=== PATIENT | male | born 1985 | race Caucasian/White ===

== ENCOUNTER 2020-12-24 19:04 | Emergency (ER) | payer SELFPAY ==
[~2020-12-24] VITALS: Ht 177.8 cm; Wt 92.1 kg
[~2020-12-24 19:04] MED LIST changes: -ALBU90OI INH
[2020-12-24] MEDS ORDERED: ALBU90OI INH (23:25)
== END 2020-12-24 23:59 | disposition home or self-care (01) ==
LOC: ER 19:04
DX: U07.1 COVID-19 (principal); I10 Essential (primary) hypertension; Z79.899 Other long term (current) drug therapy
CPT/HCPCS: 71260; 93005; 93010; 99285-25; Q9967

== ENCOUNTER → 2020-12-24 | Outpatient (CLI) | payer SELFPAY ==
[~2020-12-24] MED LIST: ALBU90OI INH; Flomax0.4 MG PO; KETO10 PO; LISI20 PO; Percocet 5-3251 EACH PO; Prinivil10 MG PO; TAMS.4ER PO; TRAZ100 PO; Zofran Odt8 MG SL
[2020-12-24 17:46] LABS: BASOPHILS ABSOLUTE AUTO 0.01 K/mm3 (0.00-0.23); BASOPHILS PERCENT AUTO 0 % (0-2); EOSINOPHILS PERCENT AUTO 0 % (0-6); Hematocrit 47.5 % (37.0-53.0); Hemoglobin 16.2 g/dL (13.5-17.5); IMMATURE GRAN ABSOLUTE AUTO 0.09 K/mm3 (0.00-0.10); IMMATURE GRAN PERCENT AUTO 1 % (0-1); LYMPHOCYTES ABSOLUTE AUTO 0.43 K/mm3 (0.84-5.20); LYMPHOCYTES PERCENT AUTO 5 % (21-46); MONOCYTES ABSOLUTE AUTO 0.44 K/mm3 (0.16-1.47); MONOCYTES PERCENT AUTO 5 % (4-13); Mean Corpuscular HGB 30.6 pg (26.0-34.0); Mean Corpuscular HGB Conc 34.1 g/dL (31.5-36.5); Mean Corpuscular Volume 90 fL (80-100); Mean Platelet Volume 9.9 fL (9.1-12.4); NEUTROPHILS ABSOLUTE AUTO 7.54 K/mm3 (1.96-9.15); NEUTROPHILS PERCENT AUTO 89 % (41-73); Platelet Count 190 K/mm3 (150-400); RDW Coefficient Variation 12.3 % (11.7-14.2); RDW Standard Deviation 40.6 fL (35.1-46.3); White Blood Cell Count 8.51 K/mm3 (4.00-11.30)
[2020-12-24 17:56] LABS: Alanine Aminotransfer (ALT/SGP 102 U/L (12-78); Albumin, Blood 3.2 g/dL (3.4-5.0); Albumin/Globulin Ratio 0.8 (0.8-1.8); Alk Phos 71 U/L (40-126); Anion Gap 9 mmol/L (6-16); Aspartate Aminotrans (AST/SGOT 30 U/L (12-37); Bilirubin, Total 0.8 mg/dL (0.1-1.0); Blood Urea Nitrogen 16 mg/dL (8-24); Bun/Creatinine Ratio 13.6 (12.0-20.0); CO2, Blood 28 mmol/L (21-32); Calcium, Blood 8.5 mg/dL (8.5-10.1); Chloride, Blood 104 mmol/L (98-108); Creatinine, Blood 1.18 mg/dL (0.60-1.20); Globulin, Blood 4.1 g/dL (2.2-4.0); Glomerular Filtration Rate >60 (60-); Glucose, Blood 124 mg/dL (70-99); Potassium, Blood 4.1 mmol/L (3.5-5.5); Sodium, Blood 141 mmol/L (136-145); Total Protein, Blood 7.3 g/dL (6.4-8.2)
== END | disposition home or self-care (01) ==
LOC: LAB SHORT 17:42 → LAB 17:42
PROVIDERS: Chiropractor
DX: U07.1 COVID-19 (principal)
CPT/HCPCS: 80053; 85025; 85379

== ENCOUNTER 2023-08-07 22:01 | Observation (INO) | payer OTHER ==
[~2023-08-07] VITALS: Ht 177.8 cm; Wt 90.7 kg
[~2023-08-07 22:01] MED LIST changes: +ALBU90OI INH
[2023-08-07] MEDS ORDERED: NIFE10 PO (22:09)
[2023-08-07] MEDS ORDERED: EPLE25 PO (22:10)
[2023-08-07] MEDS ORDERED: LOSA50 PO (22:10)
[2023-08-07] MEDS ORDERED: Prochlorperazine Edisylate 10 mg Vial IV ONE (22:20)
[2023-08-07] MEDS ORDERED: Ketorolac Tromethamine 30mg Vial IV ONE (22:20)
[2023-08-07 22:42] LABS: BASOPHILS ABSOLUTE AUTO 0.05 K/mm3 (0.00-0.23); BASOPHILS PERCENT AUTO 1 % (0-2); EOSINOPHILS ABSOLUTE AUTO 0.23 K/mm3 (0.00-0.68); EOSINOPHILS PERCENT AUTO 3 % (0-6); Hematocrit 54.1 % (37.0-53.0); Hemoglobin 18.5 g/dL (13.5-17.5); IMMATURE GRAN ABSOLUTE AUTO 0.03 K/mm3 (0.00-0.10); IMMATURE GRAN PERCENT AUTO 0 % (0-1); LYMPHOCYTES ABSOLUTE AUTO 1.89 K/mm3 (0.84-5.20); LYMPHOCYTES PERCENT AUTO 23 % (21-46); MONOCYTES ABSOLUTE AUTO 0.55 K/mm3 (0.16-1.47); MONOCYTES PERCENT AUTO 7 % (4-13); Mean Corpuscular HGB 30.6 pg (26.0-34.0); Mean Corpuscular HGB Conc 34.2 g/dL (31.5-36.5); Mean Corpuscular Volume 90 fL (80-100); Mean Platelet Volume 9.7 fL (9.1-12.4); NEUTROPHILS PERCENT AUTO 67 % (41-73); Platelet Count 149 K/mm3 (150-400); RDW Standard Deviation 39.5 fL (35.1-46.3); Red Blood Cell Count 6.04 M/mm3 (4.30-5.90); White Blood Cell Count 8.25 K/mm3 (4.00-11.30)
[2023-08-07] MEDS ORDERED: NS 1,000 ML IV SCH (23:00)
[2023-08-07 23:04] LABS: Albumin, Blood 4.7 g/dL (3.4-5.0); Albumin/Globulin Ratio 1.3 (0.8-1.8); Bilirubin, Total 0.7 mg/dL (0.1-1.0); Bun/Creatinine Ratio 10.7 (12.0-20.0); Calcium, Blood 9.7 mg/dL (8.5-10.1); Creatinine, Blood 1.21 mg/dL (0.60-1.20); Globulin, Blood 3.5 g/dL (2.2-4.0); Potassium, Blood 4.1 mmol/L (3.5-5.5); Total Protein, Blood 8.2 g/dL (6.4-8.2)
[2023-08-08] MEDS ORDERED: Acetaminophen 325 MG TABLET PO PRN (00:15)
[2023-08-08] MEDS ORDERED: Ondansetron HCl 2 MG / ML 2ML Vial IV PRN (00:15)
[2023-08-08] MEDS ORDERED: NS 1,000 ML IV ONE ×2 (00:20→01:55)
[2023-08-08 00:37] VITALS: BP 138/90
[2023-08-08] MEDS ORDERED: LOSA50 PO (00:44)
[2023-08-08] MEDS ORDERED: EPLERENONE50 MG PO (00:44)
[2023-08-08] MEDS ORDERED: NIFE30ER PO (00:44)
[2023-08-08] MEDS ORDERED: Aspirin 81 MG Chew PO SCH (01:00)
[2023-08-08 01:15] LABS: Source, Urine Clean Catch
[2023-08-08 01:16] LABS: Bilirubin, Urine Neg (Neg); Blood, Urine 2+ (Neg); Glucose Qualitative, Urine Neg (Neg); Ketones, Urine Neg (Neg); Leukocyte Esterase, Urine Neg (Neg); Nitrite, Urine Neg (Neg); Protein, Urine Neg (Neg); Specific Gravity, Urine 1.015 (1.003-1.022); Urobilinogen, Urine NORM (Normal); pH, Urine 6.5 (5.0-8.0)
[2023-08-08 01:18] LABS: Appearance, Urine Clear (Clear); Color, Urine Yellow (P-Yellow)
[2023-08-08 01:20] LABS: U Amphetamine Screen Not Detected; U Barbituate Screen Not Detected; U Benzodiazapine Screen Not Detected; U Buprenorphine Screen Not Detected; U Cannabinoids Screen Not Detected; U Cocaine Screen Not Detected; U Methadone Screen Not Detected; U Methamphetamine Screen Not Detected; U Opiates Screen Not Detected; U Oxycodone Screen Not Detected; U Phencyclidine Screen Not Detected
[2023-08-08 01:48] LABS: Bacteria Not Seen /hpf; Squamous Epithelial Cells Not Seen /hpf (Few); White Blood Cells, Urine Not Seen /hpf (0-5)
[2023-08-08 04:30] VITALS: BP 137/94
[2023-08-08 05:04] LABS: BASOPHILS ABSOLUTE AUTO 0.04 K/mm3 (0.00-0.23); BASOPHILS PERCENT AUTO 1 % (0-2); EOSINOPHILS ABSOLUTE AUTO 0.22 K/mm3 (0.00-0.68); EOSINOPHILS PERCENT AUTO 3 % (0-6); Hematocrit 48.3 % (37.0-53.0); Hemoglobin 16.3 g/dL (13.5-17.5); IMMATURE GRAN ABSOLUTE AUTO 0.04 K/mm3 (0.00-0.10); IMMATURE GRAN PERCENT AUTO 1 % (0-1); LYMPHOCYTES ABSOLUTE AUTO 2.17 K/mm3 (0.84-5.20); LYMPHOCYTES PERCENT AUTO 27 % (21-46); MONOCYTES ABSOLUTE AUTO 0.53 K/mm3 (0.16-1.47); MONOCYTES PERCENT AUTO 7 % (4-13); Mean Corpuscular HGB 30.3 pg (26.0-34.0); Mean Corpuscular HGB Conc 33.7 g/dL (31.5-36.5); Mean Corpuscular Volume 90 fL (80-100); Mean Platelet Volume 10.1 fL (9.1-12.4); NEUTROPHILS ABSOLUTE AUTO 4.99 K/mm3 (1.96-9.15); NEUTROPHILS PERCENT AUTO 62 % (41-73); Platelet Count 142 K/mm3 (150-400); RDW Coefficient Variation 11.9 % (11.7-14.2); RDW Standard Deviation 39.1 fL (35.1-46.3); Red Blood Cell Count 5.38 M/mm3 (4.30-5.90); White Blood Cell Count 7.99 K/mm3 (4.00-11.30)
[2023-08-08 05:48] LABS: Albumin/Globulin Ratio 1.4 (0.8-1.8); Bilirubin, Total 0.6 mg/dL (0.1-1.0); Bun/Creatinine Ratio 11.8 (12.0-20.0); Creatinine, Blood 1.1 mg/dL (0.60-1.20); Globulin, Blood 2.8 g/dL (2.2-4.0); Total Protein, Blood 6.8 g/dL (6.4-8.2)
[2023-08-08 07:33] VITALS: BP 141/83
[2023-08-08] MEDS ORDERED: Enoxaparin 40 MG/0.4 ML SYR SC SCH (09:00)
[2023-08-08] MEDS ORDERED: Losartan Potassium 50 MG Tab PO SCH (09:00)
[2023-08-08] MEDS ORDERED: NIFEdipine 30 MG TabCR PO SCH (09:00)
[2023-08-08] MEDS ORDERED: Eplerenone 25 MG Tab PO SCH (09:00)
[2023-08-08 09:18] LABS: C-REACTIVE PROTEIN, EXT RANGE <0.290 mg/dL (0.000-0.300)
[2023-08-08 10:38] VITALS: BP 164/97
[2023-08-08] MEDS ORDERED: Clopidogrel Bisulfate 75 MG Tab PO SCH (11:00)
[2023-08-08] MEDS ORDERED: Atorvastatin 10 MG Tab PO SCH (11:00)
[2023-08-08] MEDS ORDERED: HydrALAZINE HCl 25 MG Tab PO PRN (11:25)
[2023-08-08] MEDS ORDERED: ACET325 PO (12:09)
[2023-08-08] MEDS ORDERED: ATOR20 PO (12:10)
[2023-08-08] MEDS ORDERED: ASPI81CH PO (12:10)
[2023-08-08 12:11] LABS: Alanine Aminotransfer (ALT/SGP 37 U/L (12-78); Albumin, Blood 4.3 g/dL (3.4-5.0); Albumin/Globulin Ratio 1.5 (0.8-1.8); Alk Phos 71 U/L (50-136); Anion Gap 8 mmol/L (3-11); Aspartate Aminotrans (AST/SGOT 17 U/L (12-37); Bilirubin, Total 0.9 mg/dL (0.1-1.0); Blood Urea Nitrogen 11 mg/dL (8-24); Bun/Creatinine Ratio 9.7 (12.0-20.0); CHOL/HDL RATIO 5.8; CO2, Blood 26 mmol/L (21-32); Calcium, Blood 9.4 mg/dL (8.5-10.1); Chloride, Blood 109 mmol/L (98-108); Cholesterol 220 mg/dL (50-200); Creatinine, Blood 1.13 mg/dL (0.60-1.20); Globulin, Blood 2.9 g/dL (2.2-4.0); Glomerular Filtration Rate 86 (60-); Glucose, Blood 139 mg/dL (70-99); HDL Cholesterol 38 mg/dL (>39); LDL/HDL RATIO 3.7; Low Density Lipoprotein Chol 142 mg/dL (0-110); Potassium, Blood 3.9 mmol/L (3.5-5.5); Sodium, Blood 139 mmol/L (136-145); Total Protein, Blood 7.2 g/dL (6.4-8.2); Triglycerides 202 mg/dL (30-140); Very Low Density Lipoprot Chol 40 mg/dL (6-28)
[2023-08-08] MEDS ORDERED: CLOP75 PO (12:11)
[2023-08-08] MEDS ORDERED: HYDRA25 PO (12:12)
--- NOTE | 2023-08-08 14:59 | NUR ---
DISCHARGE A&OX4, COOPERATIVE WITH CARE. LEFT SIDED WEAKNESS AND FACIAL DROOP NOTED. PATIENT DENIED ANY PAIN, CP/PRESSURE, HEADACHE, DIZZINESS, OR SOB. NO ACUTE EVENTS THIS SHIFT. DISCHARGE PACKET REVIEWED WITH PT AND HIS . NO QUESTIONS OR CONCERNS. DENIED NEED FOR WHEELCHAIR ESCORT. PATIENT DISCHARGED AT 1450.
--- NOTE | 2023-08-08 18:15 | NUR ---
DR MCFARLANE FILLED OUT A HARD SCRIPT FOR PATIENT TO SEE OUTPATIENT PT/OT/ST. [facility]. PATIENT NOTIFIED BY PHONE CALL.
== END 2023-08-08 14:51 | disposition home or self-care (01) ==
LOC: ER 22:01 → ERHOLD 22:02 → MEDS 22:02
PROVIDERS: Emergency Medicine; Internal Medicine; ADMIT Internal Medicine
DX: I63.81 Other cerebral infarction due to occlusion or stenosis of small artery (principal); G81.94 Hemiplegia, unspecified affecting left nondominant side; R29.810 Facial weakness; R47.1 Dysarthria and anarthria; I10 Essential (primary) hypertension; E78.5 Hyperlipidemia, unspecified; Z79.899 Other long term (current) drug therapy
CPT/HCPCS: 36415; 70450; 70551; 80053; 80061; 81001; 82947; 83735; 83880; 84443; 84484; 85025; 85651; 86140; 93005; 93010; 93306; 96361; 96374; 96375; 97112; 97162; 99285-25; A9270; G0378; J0780; J1885; J7030

== ENCOUNTER 2023-08-23 21:22 | Observation (INO) | payer OTHER ==
[~2023-08-23] VITALS: Ht 175.3 cm; Wt 92.4 kg
[~2023-08-23 21:22] MED LIST changes: +ACET325 PO; +ASPI81CH PO; +ATOR20 PO; +CLOP75 PO; +EPLE25 PO; +EPLERENONE50 MG PO; +HYDRA25 PO; +LOSA50 PO; +NIFE10 PO; +NIFE30ER PO
[2023-08-23 22:06] LABS: Source, Urine Clean Catch
[2023-08-23 22:13] LABS: BASOPHILS ABSOLUTE AUTO 0.05 K/mm3 (0.00-0.23); BASOPHILS PERCENT AUTO 0 % (0-2); EOSINOPHILS PERCENT AUTO 1 % (0-6); Hematocrit 42.4 % (37.0-53.0); Hemoglobin 14.8 g/dL (13.5-17.5); IMMATURE GRAN ABSOLUTE AUTO 0.08 K/mm3 (0.00-0.10); IMMATURE GRAN PERCENT AUTO 1 % (0-1); LYMPHOCYTES ABSOLUTE AUTO 1.35 K/mm3 (0.84-5.20); LYMPHOCYTES PERCENT AUTO 10 % (21-46); MONOCYTES ABSOLUTE AUTO 1.26 K/mm3 (0.16-1.47); MONOCYTES PERCENT AUTO 9 % (4-13); Mean Corpuscular HGB Conc 34.9 g/dL (31.5-36.5); Mean Corpuscular Volume 89 fL (80-100); NEUTROPHILS ABSOLUTE AUTO 10.67 K/mm3 (1.96-9.15); NEUTROPHILS PERCENT AUTO 79 % (41-73); Platelet Count 134 K/mm3 (150-400); RDW Coefficient Variation 11.7 % (11.7-14.2); RDW Standard Deviation 37.5 fL (35.1-46.3); Red Blood Cell Count 4.78 M/mm3 (4.30-5.90); White Blood Cell Count 13.51 K/mm3 (4.00-11.30)
[2023-08-23 22:15] LABS: Bilirubin, Urine Neg (Neg); Blood, Urine 5+ (Neg); Glucose Qualitative, Urine Neg (Neg); Ketones, Urine Neg (Neg); Leukocyte Esterase, Urine Neg (Neg); Nitrite, Urine Neg (Neg); Protein, Urine 2+ (Neg); Specific Gravity, Urine 1.005 (1.003-1.022); Urobilinogen, Urine NORM (Normal)
[2023-08-23 22:23] LABS: Appearance, Urine Clear (Clear); Color, Urine Yellow (P-Yellow); White Blood Cells, Urine 0-2 /hpf (0-5)
[2023-08-23 22:24] LABS: Bacteria Not Seen /hpf; Squamous Epithelial Cells Not Seen /hpf (Few)
[2023-08-23 22:31] LABS: Albumin, Blood 3.9 g/dL (3.4-5.0); Albumin/Globulin Ratio 1.3 (0.8-1.8); Bilirubin, Total 0.6 mg/dL (0.1-1.0); Bun/Creatinine Ratio 12.4 (12.0-20.0); Creatinine, Blood 2.33 mg/dL (0.60-1.20); Globulin, Blood 2.9 g/dL (2.2-4.0); Potassium, Blood 3.6 mmol/L (3.5-5.5); Total Protein, Blood 6.8 g/dL (6.4-8.2)
[2023-08-24] MEDS ORDERED: NS 1,000 ML IV SCH ×3 (00:20→06:55)
[2023-08-24] MEDS ORDERED: HYDROmorphone HCl/Pf 1MG SYR IV ONE (00:20)
[2023-08-24] MEDS ORDERED: Tamsulosin HCl 0.4 MG Cap PO ONE (02:35)
[2023-08-24] MEDS ORDERED: LORazepam 2 MG/ML 1ML Injection IV ONE (02:35)
[2023-08-24] MEDS ORDERED: HYDROmorphone HCl/Pf 1MG SYR IV PRN ×2 (03:20→06:55)
[2023-08-24] MEDS ORDERED: HYDROcodone 5-APAP 325 TAB PO PRN (03:20)
[2023-08-24] MEDS ORDERED: Ketorolac Tromethamine 30mg Vial IV ONE (03:20)
[2023-08-24] MEDS ORDERED: Ondansetron HCl 2 MG / ML 2ML Vial IV PRN (03:20)
[2023-08-24] MEDS ORDERED: Acetaminophen 325 MG TABLET PO PRN ×2 (03:20→06:55)
[2023-08-24 03:36] LABS: Source, Urine Clean Catch
[2023-08-24 03:38] LABS: Bilirubin, Urine Neg (Neg); Blood, Urine 5+ (Neg); Glucose Qualitative, Urine Neg (Neg); Ketones, Urine Neg (Neg); Leukocyte Esterase, Urine Neg (Neg); Nitrite, Urine Neg (Neg); Protein, Urine 1+ (Neg); Specific Gravity, Urine 1.005 (1.003-1.022); Urobilinogen, Urine NORM (Normal)
[2023-08-24 03:46] LABS: Appearance, Urine Clear (Clear); Color, Urine Pale Yellow (P-Yellow)
[2023-08-24 03:51] LABS: Bacteria Not Seen /hpf; Squamous Epithelial Cells Not Seen /hpf (Few); White Blood Cells, Urine Not Seen /hpf (0-5)
[2023-08-24] MEDS ORDERED: CLON.5 PO (05:08)
[2023-08-24 05:19] VITALS: BP 143/97
--- NOTE | 2023-08-24 06:40 | NUR ---
SHIFT SUMMARY: PT ADMITTED FROM ER THIS MORNING. REPORT RECEIVED FROM WALI CARLSON. ADMISSION COMPLETED AND HOME MEDICATIONS RCONCILED. PT PAIN LEVEL TO L FLANK 3/10 ON ARRIVAL. PT CURRENTLY RESTING WITH EYES SHUT RR E/U AT THIS TIME.
[2023-08-24] MEDS ORDERED: HYDROmorphone HCl 2 MG Tab PO PRN (06:55)
[2023-08-24] MEDS ORDERED: Temazepam 15 MG Cap PO PRN (06:55)
[2023-08-24] MEDS ORDERED: Ondansetron 4 MG TAB PO PRN (06:55)
[2023-08-24] MEDS ORDERED: HYDROcodone 10-APAP 325 TAB PO PRN (06:55)
[2023-08-24] MEDS ORDERED: Zolpidem Tartrate 10 MG Tab PO PRN (07:00)
[2023-08-24 07:37] VITALS: BP 133/85
[2023-08-24 08:23] LABS: Albumin, Blood 3.5 g/dL (3.4-5.0); Bilirubin, Total 0.8 mg/dL (0.1-1.0); Bun/Creatinine Ratio 13.5 (12.0-20.0); Calcium, Blood 9.1 mg/dL (8.5-10.1); Creatinine, Blood 1.55 mg/dL (0.60-1.20); Globulin, Blood 3.4 g/dL (2.2-4.0); Potassium, Blood 4.8 mmol/L (3.5-5.5); Total Protein, Blood 6.9 g/dL (6.4-8.2)
[2023-08-24] MEDS ORDERED: HydrALAZINE HCl 25 MG Tab PO PRN (08:25)
[2023-08-24] MEDS ORDERED: Aspirin 81 MG Chew PO SCH (09:00)
[2023-08-24] MEDS ORDERED: Clopidogrel Bisulfate 75 MG Tab PO SCH (09:00)
[2023-08-24] MEDS ORDERED: NIFEdipine 30 MG TabCR PO SCH (09:00)
[2023-08-24] MEDS ORDERED: Eplerenone 25 MG Tab PO SCH (09:00)
[2023-08-24 09:44] VITALS: BP 129/88
[2023-08-24] MEDS ORDERED: CefTRIAXone Sodium 1,000 MG in NS 100 ML IV ONE (13:00)
--- NOTE | 2023-08-24 15:20 | NUR ---
Upon receiving areferral for spiritual care, I visited the patient. He is lying in bed and alert and has his spouse, bedside. 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 Patient is tearful at times as he shares the deep inner battles. He also voices his gratitude for his pati, his jew family and for his . I normalized his experience, and provide therapeutic listening and prayer. PAtient responded well and showed signs of being encouraged in his pati.
[2023-08-24 15:36] VITALS: BP 136/85
[2023-08-24] MEDS ORDERED: HYDR1TAB94 PO (15:44)
--- NOTE | 2023-08-24 16:33 | NUR ---
DISCHARGE SUMMARY PT AXO, PLEASANT AND COOPERATIVE WITH CARE. PT DISCHARGED TO HOME. PT LEFT ROOM VIA WHEELCHAIR WITH THIS NURSE ESCORT. PT EDUCATED ON ALL DISCHARGE INSTRUCTIONS DISCUSSED, ALL QUESTIONS ANSWERED. PT AGREES TO TAKE MEDICATIONS PRESCRIBED AND TO FOLLOW UP WITH PCP.
[2023-08-24] MEDS ORDERED: Atorvastatin 10 MG Tab PO SCH (21:00)
[2023-08-24] MEDS ORDERED: ClonazePAM 0.5 MG Tab PO SCH (21:00)
[2023-08-25] MEDS ORDERED: Enoxaparin 40 MG/0.4 ML SYR SC SCH (09:00)
== END 2023-08-24 16:07 | disposition home or self-care (01) ==
LOC: ER 21:22 → MEDS 21:23
PROVIDERS: Emergency Medicine; ADMIT Family Medicine
DX: N17.9 Acute kidney failure, unspecified (principal); N20.0 Calculus of kidney; I10 Essential (primary) hypertension; G47.33 Obstructive sleep apnea (adult) (pediatric); Z86.73 Personal history of transient ischemic attack (TIA), and cerebral infarction without residual deficits; Z79.82 Long term (current) use of aspirin; Z79.899 Other long term (current) drug therapy
CPT/HCPCS: 36415; 70450; 74174; 76770; 80053; 81001; 84484; 85025; 93005; 93010; 94660; 96361; 96365; 96374-59; 96375-59; 99285-25; A9270; G0378; J0696; J1170; J1885; J2060; J7030; Q9967

== ENCOUNTER 2025-01-02 09:44 | Emergency (ER) | payer OTHER ==
[~2025-01-02] VITALS: Ht 175.3 cm; Wt 97.5 kg
[~2025-01-02 09:44] MED LIST changes: +CLON.5 PO; +HYDR1TAB94 PO
[2025-01-02 09:50] VITALS: BP 152/85
[2025-01-02] MEDS ORDERED: Ondansetron HCl 2 MG / ML 2ML Vial IV PRN (09:55)
[2025-01-02 10:11] LABS: BASOPHILS ABSOLUTE AUTO 0.06 K/mm3 (0.00-0.23); BASOPHILS PERCENT AUTO 1 % (0-2); EOSINOPHILS ABSOLUTE AUTO 0.07 K/mm3 (0.00-0.68); EOSINOPHILS PERCENT AUTO 1 % (0-6); Hematocrit 47.2 % (37.0-53.0); Hemoglobin 16.3 g/dL (13.5-17.5); IMMATURE GRAN ABSOLUTE AUTO 0.10 K/mm3 (0.00-0.10); IMMATURE GRAN PERCENT AUTO 1 % (0-1); LYMPHOCYTES ABSOLUTE AUTO 1.99 K/mm3 (0.84-5.20); LYMPHOCYTES PERCENT AUTO 23 % (21-46); MONOCYTES ABSOLUTE AUTO 0.53 K/mm3 (0.16-1.47); MONOCYTES PERCENT AUTO 6 % (4-13); Mean Corpuscular HGB Conc 34.5 g/dL (31.5-36.5); Mean Corpuscular Volume 90 fL (80-100); NEUTROPHILS ABSOLUTE AUTO 5.75 K/mm3 (1.96-9.15); NEUTROPHILS PERCENT AUTO 68 % (41-73); NRBC ABSOLUTE 0.00 K/mm3 (0.00-0.02); NRBC Auto 0.0 /100 WBC (0.0-0.2); Platelet Count 176 K/mm3 (150-400); RDW Coefficient Variation 12.2 % (11.7-14.2); RDW Standard Deviation 39.8 fL (35.1-46.3)
[2025-01-02 10:45] LABS: Alanine Aminotransfer (ALT/SGP 50.0 U/L (12-78); Albumin, Blood 4.9 g/dL (3.4-5.0); Albumin/Globulin Ratio 1.6 (0.8-1.8); Anion Gap 10.0 mmol/L (3-11); Aspartate Aminotrans (AST/SGOT 20.0 U/L (12-37); Bilirubin, Total 0.9 mg/dL (0.1-1.0); Blood Urea Nitrogen 24.0 mg/dL (8-24); CO2, Blood 29.0 mmol/L (21-32); Calcium, Blood 9.5 mg/dL (8.5-10.1); Chloride, Blood 101.0 mmol/L (98-108); Creatinine, Blood 1.41 mg/dL (0.60-1.20); Globulin, Blood 3.0 g/dL (2.2-4.0); Glucose, Blood 123.0 mg/dL (70-99); Potassium, Blood 3.9 mmol/L (3.5-5.5); Sodium, Blood 136.0 mmol/L (136-145); Total Protein, Blood 7.9 g/dL (6.4-8.2)
== END 2025-01-02 13:19 | disposition home or self-care (01) ==
LOC: ER 09:44
PROVIDERS: Emergency Medicine
DX: R00.2 Palpitations (principal); R07.9 Chest pain, unspecified; I10 Essential (primary) hypertension; G47.30 Sleep apnea, unspecified; Z79.899 Other long term (current) drug therapy
CPT/HCPCS: 71046; 80053; 83690; 84484; 85025; 93246